=== PATIENT | female | born 1945 | race African-American/Black ===

== ENCOUNTER 2019-12-04 21:33 | Emergency (ER) | payer OTHER ==
[~2019-12-04] VITALS: Ht 162.6 cm; Wt 74.8 kg
[2019-12-04] MEDS ORDERED: VENTIL (21:53)
[2019-12-04] MEDS ORDERED: [UNRECOGNIZED DRUG - OTHER] (21:53)
[2019-12-04] MEDS ORDERED: [UNRECOGNIZED DRUG - OTHER] (21:54)
[2019-12-04] MEDS ORDERED: NEURON (21:55)
[2019-12-04] MEDS ORDERED: [UNRECOGNIZED DRUG - OTHER] (21:55)
[2019-12-04] MEDS ORDERED: NORFLED (21:56)
[2019-12-04] MEDS ORDERED: IBU800 MG (21:56)
[2019-12-05] MEDS ORDERED: ZYNCOF 20-400120 ML PO (02:16)
[2019-12-05] MEDS ORDERED: OSEL75CA PO (02:16)
[2019-12-05] MEDS ORDERED: DOLOGESIC 500-1 EACH PO (02:16)
== END 2019-12-05 02:31 | disposition home or self-care (01) ==
LOC: ER 21:33
DX: J11.1 Influenza due to unidentified influenza virus with other respiratory manifestations (principal); R50.9 Fever, unspecified; R41.0 Disorientation, unspecified

== ENCOUNTER → 2024-07-10 | Outpatient (CLI) | payer OTHER ==
[~2024-07-10] MED LIST: DOLOGESIC 500-1 EACH PO; IBU800 MG; NEURON; NORFLED; OSEL75CA PO; VENTIL; ZYNCOF 20-400120 ML PO; [UNRECOGNIZED DRUG - OTHER]; [UNRECOGNIZED DRUG - OTHER]; [UNRECOGNIZED DRUG - OTHER]
== END | disposition home or self-care (01) ==
LOC: TOM 07:25
PROVIDERS: ATTEND Internal Medicine Gastroenterology
DX: Z12.11 Encounter for screening for malignant neoplasm of colon (principal)